=== PATIENT | male | born 1985 | race Two or more races ===

== ENCOUNTER → 2021-06-02 | Emergency (ER) | payer OTHER ==
[~2021-06-02] VITALS: Ht 190.5 cm; Wt 117.9 kg
== END | disposition left against medical advice (07) ==
LOC: ER 20:28
DX: H57.12 Ocular pain, left eye (principal); H46.9 Unspecified optic neuritis

== ENCOUNTER → 2021-06-04 | Emergency (ER) | payer OTHER ==
[~2021-06-04] VITALS: Ht 190.5 cm; Wt 117.9 kg
== END | disposition left against medical advice (07) ==
LOC: ER 01:09
DX: H46.8 Other optic neuritis (principal)

== ENCOUNTER → 2021-06-04 | Emergency (ER) | payer OTHER ==
[~2021-06-04] VITALS: Ht 160 cm; Wt 117.9 kg
== END | disposition home or self-care (01) ==
LOC: ER 15:52
DX: H46.8 Other optic neuritis (principal)